=== PATIENT | female | born 1945 | race Asian ===

== ENCOUNTER 2024-07-12 18:44 | Inpatient (IN) | payer MEDICARE, MEDICAID ==
[~2024-07-12] VITALS: Ht 157.5 cm; Wt 57.4 kg
[2024-07-12] MEDS ORDERED: HALOPERIDOL 5 MG TABLET PO PRN (20:45)
[2024-07-12] MEDS ORDERED: ZOLPIDEM TARTRATE 10 MG TABLET PO PRN (20:45)
[2024-07-12 23:27] LABS: COVID AG,FIA SOURCE NASAL SWAB
[2024-07-12 23:37] LABS: SARS-COV2 (COVID) ANTIGEN,FIA Negative (Negative)
[2024-07-13 01:28] VITALS: O2SAT 97
[2024-07-13 04:51] VITALS: BP 137/54; PULSE 68; RESP 18; TEMP 97.8; O2SAT 96
[2024-07-13] MEDS ORDERED: NICOTINE 14 MG/24 HOUR PATCH TD PRN (06:30)
[2024-07-13] MEDS ORDERED: GuaiFENesin/D-METHORPHAN [SUGAR-FREE] 200-20MG/10 ML SYRUP UDCUP PO PRN (06:30)
[2024-07-13] MEDS ORDERED: LOPERAMIDE HCL 2 MG CAPSULE PO PRN (06:30)
[2024-07-13] MEDS ORDERED: MAG HYDROX/ALUMINUM HYD/SIMETH ES 30 ML SUSPENSION UDCUP PO PRN (06:30)
[2024-07-13] MEDS ORDERED: DOCUSATE SODIUM 100 MG CAPSULE PO PRN (06:30)
[2024-07-13] MEDS ORDERED: ONDANSETRON 4 MG TABLET PO PRN (06:30)
[2024-07-13] MEDS ORDERED: MAGNESIUM HYDROXIDE SUSPENSION 30 ML UDCUP PO PRN (06:30)
[2024-07-13] MEDS ORDERED: ACETAMINOPHEN 325 MG TABLET PO PRN (06:30)
[2024-07-13] MEDS ORDERED: ALBUTEROL SULFATE HFA 90 MCG/PUFF 8 GM INHALER IH PRN (06:30)
[2024-07-13] MEDS ORDERED: PETROLATUM,WHITE 28 GM JELLY TP PRN (06:30)
[2024-07-13] MEDS ORDERED: CloNIDine HCL 0.1 MG TABLET PO PRN (06:30)
[2024-07-13 06:35] LABS: GLUCOMETER DEV NAME(LOC) BV2X.3; GLUCOSE,POINT OF CARE 145 MG/DL (70-110)
[2024-07-13] MEDS ORDERED: PNEUMOCOCCAL VACCINE POLYVALENT 0.5 ML SYRINGE [PPSV23] IM. ONE (06:45)
[2024-07-13] MEDS ORDERED: INFLUENZA VIRUS VACCINE TVS (6MO+) 2024-25/PF 45 MCG/0.5 ML SYRINGE IM. ONE (06:45)
[2024-07-13 08:24] VITALS: BP 117/70; PULSE 77; RESP 17; TEMP 97.8; O2SAT 96
[2024-07-13 12:01] LABS: GLUCOMETER DEV NAME(LOC) BV2X.3; GLUCOSE,POINT OF CARE 190 MG/DL (70-110)
[2024-07-13] MEDS ORDERED: MEMANTINE HCL 5 MG TABLET PO SCH (17:00)
[2024-07-13] MEDS: MEMANTINE HCL 5 MG TABLET PO SCH (17:45)
[2024-07-13 20:00] VITALS: BP 178/68; PULSE 75; RESP 18; TEMP 97.7; O2SAT 97
[2024-07-13 22:00] VITALS: BP 131/82; PULSE 81
[2024-07-13] MEDS: ATORVASTATIN CALCIUM 40 MG TABLET PO SCH (22:44)
[2024-07-13] MEDS: CloNIDine HCL 0.1 MG TABLET PO ONE (22:44)
[2024-07-14] MEDS: LORazepam 2 MG TABLET PO PRN (01:13)
[2024-07-14] MEDS ORDERED: MetFORMIN HCL 500 MG TABLET PO SCH (07:00)
[2024-07-14] MEDS: CHOLECALCIFEROL (VIT D3) 2,000 UNITS [50 MCG] TABLET PO SCH (09:00)
[2024-07-14] MEDS: AmLODIPine BESYLATE 10 MG TABLET PO SCH (09:00)
[2024-07-14] MEDS: FLUTICASONE/VILANTEROL 100-25 MCG/INH INHALER [14] IH SCH (09:00)
[2024-07-14] MEDS: ESCITALOPRAM OXALATE 10 MG TABLET PO SCH (09:00)
[2024-07-14 09:30] VITALS: BP 146/68; PULSE 60; RESP 17; TEMP 97.3; O2SAT 97
[2024-07-14] MEDS: MetFORMIN HCL 500 MG TABLET PO SCH (17:59)
[2024-07-15 08:46] VITALS: BP 141/67; PULSE 73; RESP 17; TEMP 97.8; O2SAT 95
[2024-07-15 20:00] VITALS: BP 135/62; PULSE 70; RESP 18; TEMP 98.2; O2SAT 96
[2024-07-16 08:29] VITALS: BP 147/60; PULSE 78; RESP 17; TEMP 98; O2SAT 98
[2024-07-16 20:12] VITALS: BP 144/72; PULSE 96; RESP 18; TEMP 97.6; O2SAT 95
[2024-07-17 08:46] VITALS: BP 124/61; PULSE 66; RESP 17; TEMP 98.4; O2SAT 95
[2024-07-18 08:18] VITALS: BP 135/66; PULSE 74; RESP 18; TEMP 98.3; O2SAT 95
[2024-07-18] MEDS ORDERED: ESCI-8 PO (13:34)
[2024-07-18] MEDS ORDERED: MEMA5TAB41 PO (13:34)
[2024-07-18] MEDS ORDERED: FLUT1AER IH (15:11)
[2024-07-18] MEDS ORDERED: METF-1211 PO (15:12)
[2024-07-18] MEDS ORDERED: CHOL25TA4 PO (15:12)
[2024-07-18] MEDS ORDERED: AMLO-258 PO (15:12)
[2024-07-18] MEDS ORDERED: ATOR40TA28 PO (15:13)
== END 2024-07-18 20:15 | DRG 884 ==
LOC: EDBD 18:44 → EMS 18:44 → B2S 07-13 01:20 → B2X 07-13 03:00
PROVIDERS: ADMIT Psychiatry & Neurology Child & Adolescent Psychiatry; ATTEND Psychiatry & Neurology Child & Adolescent Psychiatry
PROC: GZHZZZZ Group Psychotherapy (ICD-10-PCS; principal; 2024-07-13)
PROC: GZ52ZZZ Individual Psychotherapy, Cognitive (ICD-10-PCS; 2024-07-13)
PROC: GZ56ZZZ Individual Psychotherapy, Supportive (ICD-10-PCS; 2024-07-13)
DX: F03.918 Unspecified dementia, unspecified severity, with other behavioral disturbance (principal); F20.9 Schizophrenia, unspecified; E11.9 Type 2 diabetes mellitus without complications; I10 Essential (primary) hypertension; J44.9 Chronic obstructive pulmonary disease, unspecified; Z20.822 Contact with and (suspected) exposure to COVID-19; E55.9 Vitamin D deficiency, unspecified; E78.5 Hyperlipidemia, unspecified; G47.00 Insomnia, unspecified; M81.0 Age-related osteoporosis without current pathological fracture; F41.9 Anxiety disorder, unspecified; Z88.6 Allergy status to analgesic agent
CPT/HCPCS: 82962; 87081; 99285